=== PATIENT | male | born 1980 | race Caucasian/White ===

== ENCOUNTER 2021-08-21 14:37 | Emergency (ER) | payer BC ==
[2021-08-21 15:40] LABS: HEMOGLOBIN 16.1 gm/dl (14.0-17.5); RED BLOOD COUNT 4.8 M/UL (4.20-5.50); WHITE BLOOD COUNT 15.8 K/UL (4.5-11.0)
[2021-08-21 16:23] LABS: BUN/CREATININE RATIO 11 (0-10)
[2021-08-21] MEDS ORDERED: HYDROCODONE-AC1 EACH PO (17:50)
[2021-08-21] MEDS ORDERED: IBUPROFEN600 MG PO (17:50)
== END 2021-08-21 18:03 | disposition home or self-care (01) ==
LOC: ER1 14:37
PROVIDERS: Nurse Practitioner
DX: N13.2 Hydronephrosis with renal and ureteral calculous obstruction (principal); F17.290 Nicotine dependence, other tobacco product, uncomplicated; Z90.49 Acquired absence of other specified parts of digestive tract
CPT/HCPCS: 80053; 81001; 83605; 83690; 85025; 96374; 96375; 99284; J1885; J2405

== ENCOUNTER 2022-03-22 15:22 | Emergency (ER) | payer BC ==
[~2022-03-22 15:22] MED LIST: HYDROCODONE-AC1 EACH PO; IBUPROFEN600 MG PO
[2022-03-22 16:31] LABS: HEMOGLOBIN 15.2 gm/dl (14.0-17.5); RED BLOOD COUNT 4.55 M/UL (4.20-5.50); WHITE BLOOD COUNT 12.4 K/UL (4.5-11.0)
[2022-03-22 17:01] LABS: BUN/CREATININE RATIO 19 (0-10)
[2022-03-22] MEDS ORDERED: HYDROCODON-ACE1 EAC4 PO (18:16)
== END 2022-03-22 18:40 | disposition home or self-care (01) ==
LOC: ER1 15:22
PROVIDERS: Family Medicine
DX: S32.039A Unspecified fracture of third lumbar vertebra, initial encounter for closed fracture (principal); R10.2 Pelvic and perineal pain; I10 Essential (primary) hypertension; W17.89XA Other fall from one level to another, initial encounter; Y92.009 Unspecified place in unspecified non-institutional (private) residence as the place of occurrence of the external cause
CPT/HCPCS: 70450; 72125; 72128; 72131; 72192; 80053; 82550; 82553; 84484; 85025; 96374; 96375; 99284; J2270; J2405